=== PATIENT | female | born 1940 | race African-American/Black ===

== ENCOUNTER 2016-05-08 06:47 | Outpatient (CLI) | payer MEDICARE ==
[~2016-05-08] VITALS: Ht 167.6 cm; Wt 97.7 kg
--- NOTE | ~2016-05-08 | HEMODYNAMI ---
PATIENT:NIURKA SHARP MEDICAL RECORD: [id number] : 38 LOCATION:[facility] ADMISSION DATE: 05/08/16 Generatedon:05/08/201610:25 Patient name: NIURKA SHARP Patient #: [id number] SSN: DO B: 1940 Date of study: 05/08/2016 Page: Of Hemodynamic Procedure Report Patient Data Patient Demographics Procedure consent was obtained First Name: NIURKA Gender: Female Last Name: ARON : 1940 [facility] Initial: L Age: 76 year(s) Patient #: [id number] Race: Black Additional ID: [id number] Contact details Address: [address] [place] [address] State: [place] City: [facility] Zip code: [address] Past Medical History Performed procedures and imaging results Date Procedure Procedure Results Comments Stress testing with Positive->High SPECT MPI risk Allergies Allergen Reaction Date Comments Reported Sulfa drugs 05/08/2016 Admission Admission Data Admission Date: 05/08/2016 Admission Time: 6:47 Admit Source: Other Insurance Payor: Private health insurance Height (in.): 66 BSA: 2.06 (m2) Height (cm.): 167.64 BMI: 34.7 (kg/m2) Weight (lbs.): 215 Weight (kg.): 97.52 Medications upon Admission Medications Dosage Times Administered Last Remarks per Delivery Day Date and Time Aspirin Yes 05/07/2016 (any) 0:00 Clopidogrel Yes 05/08/2016 0:00 Lab Results Lab Result Date: 05/08/2016 Lab Result Time: 0:00 Biochemistry Name Units Result Min Max Creatinine mg/dl 0.7 --(*---)-- 0.6 1.3 CBC Name Units Result Min Max Hemoglobin g/dl 13 -*(----)-- 13.5 17.5 Procedure Procedure Types Cath Procedure Diagnostic Procedure LHC LH w/Coronaries PCI Procedure Coronary Stent Initial Miscellaneous Procedures Moderate Sedation up to 30 minutes Procedure Description Procedure Date Procedure Date: 05/08/2016 Procedure Start Time: 10:02 Procedure End Time: 10:17 Procedure Staff Name Function Ghada Abraham RT Monitor Bran Calle RN Nurse Mk Lima MD Performing Physician Idris Li RT Scrub Procedure Data Cath Procedure Fluoroscopy Diagnostic fluoroscopy Total fluoroscopy Time: 3.2 time: 3.2 min min Diagnostic fluoroscopy Total fluoroscopy dose: dose: 288.07 mGy 288.07 mGy Contrast Material Contrast Material Type Amount (ml) Isovue 300 96 Entry Location Entry Primary Successful Side Size Upsize Upsize Entry Closure [place] ccessful Closure Location (Fr) 1 (Fr) 2 (Fr) Remarks Device Remarks Femoral Right 5 Fr 6 Fr Mechanical artery Short Compression Estimated blood loss: 10 ml Diagnostic catheters Device Type Used For End Catheter Placement Cordis 5Fr Pigtail LV Angiography Catheter (MP) Cordis 5Fr JL 4.0 Left Coronary Catheter (MP) Angiography Cordis 5Fr 3DRC Catheter Right Coronary (MP) Angiography Procedure Complications No complications Procedure Medications Medication Administration Route Dosage Oxygen NC 2 l/min Heparin Flush Bag added to field 2 bags (1000units/500ml NS) 0.9% NaCl I.V. 100 ml/hr Plavix P.O. 600 mg Fentanyl I.V. 50 mcg Versed I.V. 1 mg Fentanyl I.V. 50 mcg Versed I.V. 1 mg Heparin Bolus I.V. 4000 units Integrilin (Bolus I.V. 9 ml 2mg/ml) Fentanyl I.V. 50 mcg Hemodynamics Rest BSA: 2.06 (m2) HGB: 13 (g/dl) O2 Consumption: Estimated: 185.38 (ml/min) O2 Cons umption indexed: Estimated:89.99 (ml/min/m) Heart Rate: 69 (bpm) Snapshots Pre Cath Intra NCS Post Cath Vital Signs Time Heart Resp SPO2 NIBP (mmHg) Rhythm Pain Sedation Rate (ipm) (%) Status Level (bpm) 9:38:33 68 16 98 153/63(121) NSR 0 (11) 10(A) , No pain 9:42:55 64 20 98 148/71(117) NSR 0 (11) 10(A) , No pain 9:47:13 65 19 99 147/67(117) NSR 0 (11) 10(A) , No pain 9:51:33 67 19 99 147/69(120) NSR 0 (11) 10(A) , No pain 9:55:57 67 20 99 158/70(114) NSR 0 (11) 9(A) , No pain 10:00:13 70 20 96 139/92(121) NSR 0 (11) 9(A) , No pain 10:04:34 62 20 94 148/75(120) NSR 0 (11) 9(A) , No pain 10:08:48 64 18 95 146/80(122) NSR 0 (11) 9(A) , No pain 10:13:08 82 18 96 163/80(125) NSR 0 (11) 9(A) , No pain 10:17:32 83 14 96 143/78(91) NSR 0 (11) 9(A) , No pain Medications Time Medication Route Dose Verified Delivered Reason Notes Effectiveness by by 9:38:03 Oxygen NC 2 Bran Bran Per physician l/min Luc Calle RN RN 9:38:26 Heparin Flush added 2 Bran Bran used for Bag to bags Luc Calle RN procedure (1000units/500ml field RN NS) 9:38:41 0.9% NaCl I.V. 100 Bran Bran Per physician ml/hr Luc Calle RN RN 9:38:53 Plavix P.O. 600 Bran Bran for mg Luc Calle RN antiplatelet RN therapy 9:53:54 Fentanyl I.V. 50 Bran Bran for sedation mcg Luc Calle RN RN 9:54:01 Versed I.V. 1 mg Bran Bran for sedation Luc Calle RN RN 10:02:51 Fentanyl I.V. 50 Bran Bran for sedation mcg Luc Calle RN RN 10:02:57 Versed I.V. 1 mg Bran Bran for sedation Luc Calle RN RN 10:08:40 Heparin Bolus I.V. 4000 Bran Bran for units Luc Calle RN anticoagulation RN 10:08:54 Integrilin I.V. 9 ml Bran Barillasy for wasted 1mL (Bolus 2mg/ml) Luc Calle RN antiplatelet integrilin RN therapy bolus 10:11:29 Fentanyl I.V. 50 Bran Bran for sedation mcg Calle Calle RN java web engineer Log Time Note 8:41:05 Diagnostic Cath Status : Elective 8:44:28 Lab Result : Hemoglobin 13 g/dl 8:44:28 Lab Result : Creatinine 0.7 mg/dl 8:44:45 Admit Source: Other 8:44:50 Insurance Payor : Private health insurance 8:45:01 Patient Height : 167.64 inches 8:45:18 Patient Weight : 97.52 lbs 8:47:31 Patient allergic to Sulfa drugs 9:06:47 Time tracking: Regular hours 9:06:49 Bran Calle RN sent for patient. Start room use. 9:06:53 Plan of Care:Hemodynamics will remain stable., Cardiac rhythm will remain stable., Comfort level will be maintained., Respiratory function will remain adequate., Patient/ family verbilizes understanding of procedure., Procedure tolerated without complication., Recovers from procedure without complications.. 9:25:30 Patient received from Pre/Post Procedure Room to [facility] 3 Alert and oriented. Tansferred to table in Supine position. 9:36:38 Correct patient and procedure confirmed by team. 9:36:38 Warm blankets applied, and david hugger turned on for patient comfort. 9:36:39 Signed procedure consent form obtained from patient. 9:36:40 ECG and BP/O2 sat monitors applied to patient. 9:36:41 Full Disclosure recording started 9:37:19 Vital chart was started 9:37:24 Rhythm: sinus rhythm 9:37:39 H&P Date Dictated: 04/18/2016 Within 30 days and on chart., H&P Addendum completed by physician on day of procedure. (MUST COMPLETE FOR ALL OUTPATIENTS). 9:37:40 Pre-op teaching completed and patient verbalized understanding. 9:37:40 Pre-procedure instructions explained to patient. 9:37:42 Family in waiting room. 9:37:44 Patient NPO since Midnight. 9:37:46 Is the patient allergic to Iodine/contrast media? No. 9:37:48 Is patient on blood thinner?Yes 9:37:50 ACC The patient was administered the following blood thiners within the last 24 hours: ACCAspirin, ACCPlavix 9:37:52 Patient diabetic? Yes. 9:38:03 Oxygen 2 l/min NC was given by Bran Calle RN; Per physician; 9:38:17 If diabetic: On Metformin? No 9:38:21 Previous problem with sedation/anesthesia? No ? 9:38:23 Snore? Yes 9:38:24 Sleep apnea? No 9:38:25 Opens mouth fully? Yes 9:38:25 Deviated septum? No 9:38:26 Sticks out tongue? Yes 9:38:26 Heparin Flush Bag (1000units/500ml NS) 2 bags added to field was given by Bran Calle RN; used for procedure; 9:38:28 Airway obstruction? No ? 9:38:31 Dentures? Yes In 9:38:37 Pre procedure: right dorsailis pedis pulse 2+ Normal; easily identifiable; not easily obliterated 9:38:40 Patient pain scale 0/10 ?. 9:38:41 0.9% NaCl 100 ml/hr I.V. was given by Bran Calle RN; Per physician; 9:38:45 IV patent on arrival in left hand with 0.9% NaCl at [facility]. 9:38:50 Lab results completed and on chart. 9:38:53 Plavix 600 mg P.O. was given by Bran Calle RN; for antiplatelet therapy; 9:38:54 Right groin area was prepped with chlora-prep and draped in sterile fashion 9:38:55 Alarms reviewed by R. N. 9:38:56 Sharps counted by scrub and verified by R.N. 9:40:23 Baseline sample Acquired. 9:40:28 Use device set Femoral Dx 9:40:29 Acist Syringe opened to sterile field. 9:40:30 Medline Cath Pack opened to sterile field. 9:40:30 Bag Decanter opened to sterile field. 9:40:31 St Bubba 260cm J .035 wire opened to sterile field. 9:40:31 Terumo 5Fr [place] Sheath opened to sterile field. 9:40:32 Acist Hand Control opened to sterile field. 9:40:33 Diagnostic Infinity 5Fr Multipack catheter opened to sterile field. 9:40:33 Acist Manifold opened to sterile field. 9:40:34 Tegaderm 4 x 4 opened to sterile field. 9:43:59 Zero performed for pressure channel P1 9:44:02 Zero performed for pressure channel P1 9:53:32 Final Timeout: patient, procedure, and site verified with staff and physician. All members of the team are in agreement. 9:53:34 Right groin site verified by team. 9:53:36 Physical assessment completed. ASA score P 2 - A patient with mild systemic disease as per Mk Lima MD. 9:53:39 Sedation plan: IV Moderate Sedation Versed, Fentanyl 9:53:54 Fentanyl 50 mcg I.V. was given by Bran Calle RN; for sedation; 9:54:01 Versed 1 mg I.V. was given by Bran Calle RN; for sedation; 10:02:06 Procedure started. 10:02:11 Local anesthetic to right femoral artery with Lidocaine 2% by Mk Lima MD.INITIAL ACCESS ONLY 10:02:51 Fentanyl 50 mcg I.V. was given by Bran Calle RN; for sedation; 10:02:55 A 5 Fr sheath was inserted into the Right Femoral artery 10:02:57 Versed 1 mg I.V. was given by Bran Calle RN; for sedation; 10:03:11 A Cordis 5Fr Pigtail Catheter (MP) was advanced over the wire and used for LV Angiography. 10:03:36 LV gram done using ACEVEDO 10:03:40 Injector settings: Ml/sec: 10, Volume: 20, 10:03:44 EF : 40 % 10:03:45 Catheter removed. 10:03:53 A Cordis 5Fr JL 4.0 Catheter (MP) was advanced over the wire and used for Left Coronary Angiography. 10:05:39 Terumo 6Fr [place] Sheath opened to sterile field. 10:05:40 Kaur Whisper J 300cm 0.014 guide wire opened to sterile field. 10:05:40 TVShow Time BasixCompak Inflation Kit opened to sterile field. 10:05:46 Catheter removed. 10:05:50 A Cordis 5Fr 3DRC Catheter (MP) was advanced over the wire and used for Right Coronary Angiography. 10:06:29 Catheter removed. 10:07:11 Cordis 6FR XBLAD 3.5 guide catheter opened to sterile field. 10:08:03 Sheath upsized to a 6 Fr Short. 10:08:17 6 Fr XBLAD 3.5 guide catheter was inserted over the wire 10:08:21 Whisper wire advanced. 10:08:40 Heparin Bolus 4000 units I.V. was given by Bran Calle RN; for anticoagulation; 10:08:54 Integrilin (Bolus 2mg/ml) 9 ml I.V. was given by Bran Calle RN; for antiplatelet therapy; wasted 1mL integrilin bolus 10:09:12 Inflation Number: 1 A Medtronic Resolute 2.5 X 30 stent was prepped and advanced across the Mid LAD. The stent was deployed at 19 PELON for 0:15 (min:sec). 10:10:00 Stent catheter was removed intact over wire. 10:11:29 Fentanyl 50 mcg I.V. was given by Bran Calle RN; for sedation; 10:11:55 Inflation Number: 1 A Medtronic Resolute 2.5 X 18 stent was prepped and advanced across the Dist LAD. The stent was deployed at 13 PELON for 0:11 (min:sec). 10:12:22 Guide catheter removed. 10:12:22 Wire removed. 10:12:22 Stent catheter was removed intact over wire. 10:12:30 Sheath removed intact; hemostasis achieved with Mechanical Compression to the Right Femoral artery. 10:12:37 Cordis 6Fr Exoseal opened to sterile field. 10:12:39 Procedure ended.(Physican Out) 10:13:33 Fluoroscopy time 03.20 minutes. 10:13:54 Fluoroscopy dose: 288.07 mGy 10:13:54 Flurop Dose total: 288.07 10:14:25 Contrast amount:Isovue 300 96ml. 10:14:37 Sharps counted by scrub and verified by R.N. 10:14:39 Insertion/operative site no bleeding no hematoma. 10:14:44 Post-op/insertion site Right Femoral artery dressed using a 4 x 4 and Tegaderm. 10:14:47 Post right femoral artery:stable, clean and dry 10:14:49 Post Procedure Pulses reassessed and unchanged 10:14:52 Post-procedure physical assessment completed. ASA score P 2 - A patient with mild systemic disease as per Mk Lima MD. 10:14:53 Post procedure rhythm: unchanged. 10:14:56 Estimated blood loss: 10 ml 10:14:58 Patient needs reinforcement of post procedure teaching. 10:14:58 Post procedure instruction explained to patient.Patient verbalizes understanding. 10:15:07 Post right femoral artery:oozing 10:15:21 Procedure type changed to Cath procedure, Diagnostic procedure, LHC, LHC w/Coronaries, PCI procedure, Coronary Stent Initial, Miscellaneous Procedures, Moderate Sedation up to 30 minutes 10:15:30 Procedure Complication : No complications 10:15:32 St Bubba Femstop Arch Gold opened to sterile field. 10:15:33 See physician's report for complete and final results. 10:15:47 Femstop placed over the right femoral artery at 120 mmHg. Hemostasis achieved. 10:17:16 Procedure and supply charges have been captured, reviewed, submitted and are correct. 10:17:34 Vital chart was stopped 10:17:35 Report given to Pre/Post Procedure Room. 10:17:38 Patient transfered to Pre/Post Procedure Room with Bed. 10:17:41 Full Disclosure recording stopped 10:17:41 Procedure ended. 10:17:45 End room use (Document Last) Intervention Summary Intervention Notes Time ActionType Lesion and Equipment Action# Pressure Duration Attributes Used 10:09:12 Place stent Mid LAD Medtronic 1 19 00:15 Resolute 2.5 X 30 stent 10:11:55 Place stent Dist LAD Medtronic 1 13 00:11 Resolute 2.5 X 18 stent Device Usage Item Name Manufacture Quantity Catalog Hospital Part Current Minimal Lot# / Number Charge Number Stock Stock Serial# Code Acist Acist 1 [id number] 322671 719301 [id number] 20 Syringe Medical Systems Inc Bag Microtek 1 2002S 472143 45621 830200 5 Bio[employer] Solutions Medical Inc. Medline Cardinal 1 [id number] 852263 29731 895932 5 Cath Pack Health Terumo 5Fr Terumo 1 [id number] 906567 603790 527373 [address] St Bubba 1 277538 142743 400157 980928 30 260cm J .035 wire Acist Hand Acist 1 40735 083294 706829 502006 5 Control Medical Systems Inc Acist Acist 1 86727 476344 823283 041127 5 Manifold Medical Systems Inc Diagnostic Cardinal 1 [id number] 129734 68913 822965 30 Simplilearn 5Fr Multipack catheter Tegaderm 4 3M 1 1626W 274215 653957 005955 5 x 4 Cordis 5Fr Cardinal 1 [id number] 5 Pigtail Health Catheter (MP) Cordis 5Fr Cardinal 1 [id number] 5 JL 4.0 Health Catheter (MP) Terumo 6Fr Terumo 1 [id number] 917530 979038 196098 40 [place] Sheath [facility] 1 [id number] 310837 213215 369926 15 BasixCompak Medical Inflation Kit Kaur Kaur 1 [id number] 759664 976551 228536 5 Whisper J Vascular 300cm 0.014 guide wire Cordis 5Fr Cardinal 1 410202 5 3DRC Health Catheter (MP) Cordis 6FR Cardinal 1 [id number] 458970 125661 295709 10 XBLAD 3.5 Health guide catheter Medtronic Medtronic 1 [id number] 692272 747507 9 [id number] Resolute 2.5 X 30 stent Medtronic Medtronic 1 [id number] 389762 821266 4 [id number] Resolute 2.5 X 18 stent Cordis 6Fr Cardinal 1 [id number] 958445 433265 794575 10 [id number] [facility] St Bubba 1 [id number] 886677 094227 016879 5 Femstop Arch Gold Signature Audit Elizabeth Stage Time Signature Unsigned Intra-Procedure 05/08/2016 Ghada Urrutia Counts 10:18:42 AM Counts RT(R) RT(R) 05/08/2016 10:23:05 AM Intra-Procedure 05/08/2016 Ghada 10:25:08 AM Counts RT(R) Signatures Monitor : Ghada Signature : Counts RT Date : Time : [place] [id number] [place] [address]
[~2016-05-08 06:47] MED LIST: BAYER CHEWABLE81 MG PO; CATAPRES0.1 MG; COREG6.25 MG PO; DIOVAN HCT 320/1 TA2 PO; ISORDIL5 MG; LANTUS SOL100 UNIT/1 SQ; NOVOLOG100 U/M1 SQ; PLAVIX75 MG PO
[2016-05-08 07:59] VITALS: BP 161/64; Ht 167.6 cm; Wt 97.7 kg
[2016-05-08 08:32] LABS: BASOPHILS 0.3 % (0.0-2.0); HEMATOCRIT 39.4 % (36.0-48.0); IMMATURE GRANULOCYTES 0.1 % (0-5); LYMPHOCYTES 43.4 % (15-50); MCH 29.7 pg (26.0-34.0); MEAN PLATELET VOLUME 10.5 fL (7.4-10.4); MONOCYTES 6.1 % (2-11); NEUTROPHILS 49.1 % (40-80); PLATELET COUNT 229 10x3/uL (130-400); RBC 4.38 10x6/uL (4.00-5.40); RDW 13.8 % (11.5-14.5); WBC 7.7 10x3/uL (4.8-10.8)
[2016-05-08 08:38] LABS: CALC OSMOLALITY 286 mosm/kg (275-300); CALCIUM 8.9 mg/dL (8.5-10.1); CARBON DIOXIDE 30.2 mmol/L (21.0-32.0); CHLORIDE - SERUM 106 mmol/L (98-107); CREATININE - SERUM 0.7 mg/dL (0.6-1.3); SODIUM 144 mmol/L (136-145); UREA NITROGEN 12 mg/dL (7-18); eGFR NON AFRICAN AMERICAN 86 mL/min (90-120)
[2016-05-08 08:41] LABS: GLUCOSE 104 mg/dL (74-106)
--- NOTE | 2016-05-08 10:45 | NUR ---
RESTING IN BED WITH FAMILY AT BEDSIDE. 2L NASAL CANNULA, NO RESP DISTRESS NOTED. NO C/O NAUSEA OR CHEST PAIN. RIGHT GROIN DRSG CDI, NO BLEEDING OR HEMATOMA NOTED. FEMSTOP IN PLACE AT 126. PULSES PALPABLE X4. WILL CONTINUE TO MONITOR.
--- NOTE | 2016-05-08 11:15 | NUR ---
ASSISTED PT ONTO BEDPAN, VOIDED 350CC OF CLEAR YELLOW URINE. WATER AND CRACKERS GIVEN. NO C/O N/V OR CHEST PAIN. VSS.
--- NOTE | 2016-05-08 11:30 | NUR ---
FEMSTOP PRESSURE DECREASED BY 30. NO BLEEDING OR HEMATOMA NOTED TO SITE.
--- NOTE | 2016-05-08 12:04 | NUR ---
FEMSTOP PRESSURE RELEASED BY 25. NO BLEEDING NOTED TO SITE.
--- NOTE | 2016-05-08 12:30 | NUR ---
FEMSTOP PRESSURE RELEASED BY 25. NO BLEEDING NOTED TO SITE.
--- NOTE | 2016-05-08 13:14 | NUR ---
FEMSTOP PRESSUER RELEASED BY 30. NO BLEEDING NOTED AT SITE. VSS. NO NEEDS VOICED AT THIS TIME.
--- NOTE | 2016-05-08 13:54 | NUR ---
REMAINING FEMSTOP PRESSURE REMOVED, NO BLEEDING NOTED. DRESSING PLACED TO SITE. HOB RAISED 30 DEGREES.
--- NOTE | 2016-05-08 14:01 | NUR ---
LEFT FA PIV D/C'D WITH CATHETER INTACT. BAND AID PLACED AT SITE.
--- NOTE | 2016-05-08 14:11 | NUR ---
DISCHARGE INSTRUCTIONS GIVEN, VERBALIZED UNDERSTANDING. UP TO BEDSIDE TO GET DRESSED.
--- NOTE | 2016-05-08 14:19 | NUR ---
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 LEFT FACILITY WITH FAMILY MEMBER AND ALL PERSONAL BELONGINGS.
--- NOTE | 2016-05-20 10:08 | OP ---
PATIENT NAME: NIURKA SHARP MEDICAL RECORD: [id number] :38 LOCATION:D.CAT ADMISSION DATE: SURGEON: SHERICE ROSA MD DATE OF OPERATION: 05/08/2016 PROCEDURES: 1. PTCA stent LAD. 2. Left heart catheterization. 3. Selective coronary angiography. 4. Left ventriculogram. INDICATION: Angina and coronary artery disease. PROCEDURE IN DETAIL: After informed consent was obtained and after a detailed explanation of risks, benefits as well as alternative therapies, the patient elected to proceed with angiogram and angioplasty. The right radial area is prepped and draped in normal sterile fashion. Right radial artery was cannulated via modified Seldinger technique with placement of 6-Arabic sheath. All catheters exchanged through this sheath. FINDINGS: The left ventriculogram was performed in the standard 30-degree ACEVEDO view reveals global hypokinesis throughout all segments. Overall ejection fraction mildly depressed. Ejection fraction is estimated at 40%. SELECTIVE CORONARY ANGIOGRAPHY: 1. Left main showed no significant angiographic disease. 2. Left anterior descending has previously placed stents, these are widely patent. However, there is a new 80+ percent stenosis distal to the previously placed stents. 3. The left circumflex shows moderate irregularities, but no flow-limiting stenosis. 4. Right coronary has moderate irregularities, but no flow-limiting stenosis. PTCA STENT OF THE LAD: The stents used were a 2.5 x 30 and 2.5 x 18 both Resolute stents. Result was 0% residual stenosis. OVERALL IMPRESSION: Successful percutaneous transluminal coronary angioplasty stent of the left anterior descending going from 80% initial stenosis to 0% residual. TRANSINT:[id number] Voice Confirmation ID: [id number] DOCUMENT ID: [id number] SHERICE ROSA MD at 1008 CC: [id number] DICTATION DATE: 05/08/16 1017 BLENDING TANK TENDER: 05/08/16 1452 [facility] CLI 05/08/[address] [address]
== END 2016-05-08 14:30 | disposition home or self-care (01) ==
LOC: D.CATH 06:47
PROVIDERS: Internal Medicine Interventional Cardiology
DX: I25.119 Atherosclerotic heart disease of native coronary artery with unspecified angina pectoris (principal); Z95.5 Presence of coronary angioplasty implant and graft
CPT/HCPCS: 93458; C9600

== ENCOUNTER 2017-07-11 08:02 | Outpatient (CLI) | payer MEDICARE ==
[~2017-07-11] VITALS: Ht 167.6 cm; Wt 97.7 kg
--- NOTE | ~2017-07-11 | HEMODYNAMI ---
PATIENT:NIURKA SHARP MEDICAL RECORD: [id number] : 38 LOCATION:D.CAT ADMISSION DATE: 07/11/17 Generatedon:07/11/201711:17 Patient name: NIURKA SHARP Patient #: [id number] SSN: DO B: 1940 Date of study: 07/11/2017 Page: Of Hemodynamic Procedure Report Patient Data Patient Demographics Procedure consent was obtained First Name: NIURKA Gender: Female Last Name: ARON : 1940 Middle Initial: L Age: 77 year(s) Patient #: [id number] Race: Black Additional ID: [id number] Contact details Address: [address] [place] [address] [place] [facility] [place] [place]: [address] Past Medical History Allergies Allergen Reaction Date Comments Reported Sulfa drugs 05/08/2016 Other allergy 07/11/2017 Sulfa Admission Admission Data Admission Date: 07/11/2017 Admission Time: 8:02 Height (in.): 66 BSA: 2.02 (m2) Height (cm.): 167.64 BMI: 33.09 (kg/m2) Weight (lbs.): 205 Weight (kg.): 92.99 Procedure Procedure Types Cath Procedure Diagnostic Procedure [facility] w/Coronaries PCI Procedure Coronary Stent Coronary Stent Initial Procedure Description Procedure Date Procedure Date: 07/11/2017 Procedure Start Time: 11:01 Procedure End Time: 11:13 Procedure Staff Name Function Mk Lima MD Performing Physician Leticia Montgomery RT Monitor Bran Calle RN Nurse Franny Love RT Scrub Procedure Data Cath Procedure Fluoroscopy Diagnostic fluoroscopy Total fluoroscopy Time: 2.3 time: 2.3 min min Diagnostic fluoroscopy Total fluoroscopy dose: 536 dose: 536 mGy mGy Contrast Material Contrast Material Type Amount (ml) Isovue 300 70 Entry Location Entry Primary Successful Side Size Upsize Upsize Entry Closure Succes sful Closure Location (Fr) 1 (Fr) 2 (Fr) Remarks Device Remarks Femoral Right 5 Fr 6 Fr Exoseal artery Short Estimated blood loss: 10 ml Diagnostic catheters Device Type Used For End Catheter Placement MULTIPACK Pigtail 5 Fr Procedure catheter MULTIPACK JL 4.0 5Fr Procedure catheter MULTIPACK 3DRC 5Fr Procedure catheter Procedure Complications No complications Procedure Medications Medication Administration Route Dosage Oxygen etCO2 Nasal cannula 2 l/min Heparin Flush Bag added to field 2 bags (1000units/500ml NS) 0.9% NaCl I.V. 100 ml/hr Fentanyl I.V. 50 mcg Versed I.V. 1 mg Fentanyl I.V. 50 mcg Versed I.V. 1 mg Heparin Bolus I.V. 4000 units Hemodynamics Rest BSA: 2.02 (m2) O2 Consumption: Estimated: 274.72 (ml/min) O2 Consumption indexed : Estimated:136 (ml/min/m) Snapshots Pre Cath Intra NCS Post Cath Vital Signs Time Heart Resp SPO2 etCO2 NIBP (mmHg) Rhythm Pain Sedation Rate (ipm) (%) (mmHg) Status Level (bpm) 10:46:06 64 17 97 0 142/61(123) NSR 0 (11) 10(A) , No pain 10:50:24 62 16 95 0 134/66(107) NSR 0 (11) 10(A) , No pain 10:54:38 70 16 98 41.3 137/70(96) NSR 0 (11) 10(A) , No pain 10:58:56 67 17 98 15.7 131/68(102) NSR 0 (11) 9(A) , No pain 11:02:56 67 16 84 34.5 115/82(111) NSR 0 (11) 9(A) , No pain 11:07:55 66 16 90 8.2 Measuring NSR 0 (11) 9(A) , No pain 11:08:09 66 16 89 24 139/68(121) NSR 0 (11) 9(A) , No pain 11:12:28 79 17 89 38.3 137/74(121) NSR 0 (11) 9(A) , No pain Medications Time Medication Route Dose Verified Delivered Reason Notes Effectiveness by by 10:51:09 Oxygen etCO2 2 Mk Sotomayor Per physician Nasal l/min Janie Calle RN cannula 10:51:18 Heparin Flush added 2 Mk Sotomayor used for Bag to bags Janie Calle RN procedure (1000units/500ml field NS) 10:51:25 0.9% NaCl I.V. 100 Mk Sotomayor Per physician ml/hr Janie Calle RN 10:56:11 Fentanyl I.V. 50 Mk Sotomayor for sedation mcg Janie Calle RN 10:56:17 Versed I.V. 1 mg Mk Sotomayor for sedation Janie Calle RN 10:59:36 Fentanyl I.V. 50 Mk Sotomayor for sedation mcg Janie Calle RN 10:59:42 Versed I.V. 1 mg Mk Sotomayor for sedation Janie Calle RN 11:06:24 Heparin Bolus I.V. 4000 Mk Sotomayor for units Janie Calle RN anticoagulation Procedure Log Time Note 10:30:34 Leticia Montgomery RT(R) sent for patient. Start room use. 10:39:57 Patient Height : 66 inches 10:40:02 Patient Weight : 205 lbs 10:40:32 Diagnostic Cath status Elective 10:40:35 Time tracking: Regular hours (M-F 7:00 - 5:00) 10:40:41 Plan of Care:Hemodynamics will remain stable., Cardiac rhythm will remain stable., Comfort level will be maintained., Respiratory function will remain adequate., Patient/ family verbilizes understanding of procedure., Procedure tolerated without complication., Recovers from procedure without complications.. 10:40:46 Patient received from Pre/Post Procedure Room to CCL 2 Alert and oriented. Tansferred to table in Supine position. 10:40:47 Warm blankets applied, and david hugger turned on for patient comfort. 10:40:48 Correct patient and procedure confirmed by team. 10:40:50 Signed procedure consent form obtained from patient. 10:40:51 ECG and BP/O2 sat monitors applied to patient. 10:41:28 H&P Date Dictated: 07/02/2017 Within 30 days and on chart., H&P Addendum completed by physician on day of procedure. (MUST COMPLETE FOR ALL OUTPATIENTS). 10:41:31 Family in waiting room. 10:41:32 Patient NPO since Midnight. 10:42:10 Patient allergic to Other allergySulfa 10:42:13 Is the patient allergic to Iodine/contrast media? No. 10:42:15 Was the patient premedicated? Yes 10:42:20 Is patient on blood thinner?Yes 10:42:23 ACC The patient was administered the following blood thiners within the last 24 hours: ACCPlavix 10:42:25 Patient diabetic? Yes. 10:42:27 If diabetic: On Metformin? No 10:42:32 Snore? Yes 10:42:35 Sleep apnea? Unknown 10:42:40 Dentures? No ? 10:42:52 IV patent on arrival in left forearm with 0.9% NaCl at [facility]. 10:45:00 Vital chart was started 10:45:04 Baseline sample Acquired. 10:51:09 Oxygen 2 l/min etCO2 Nasal cannula was administered by Bran Calle RN; Per physician; 10:51:18 Heparin Flush Bag (1000units/500ml NS) 2 bags added to field was administered by Bran Calle RN; used for procedure; 10:51:25 0.9% NaCl 100 ml/hr I.V. was administered by Bran Calle RN; Per physician; 10:52:57 Lab results completed and on chart. 10:53:01 Right groin area was prepped with chlora-prep and draped in sterile fashion 10:53:07 Alarms reviewed by R. N. 10:53:08 Sharps counted by scrub and verified by R.N. 10:53:10 Physician paged 10:56:03 Physician arrived 10:56:03 --------ALL STOP TIME OUT------ 10:56:04 Final Timeout: patient, procedure, and site verified with staff and physician. All members of the team are in agreement. 10:56:10 Right groin site verified by team. 10:56:11 Fentanyl 50 mcg I.V. was administered by Bran Calle RN; for sedation; 10:56:14 Physical assessment completed. ASA score P 2 - A patient with mild systemic disease as per Mk Lima MD. 10:56:17 Versed 1 mg I.V. was administered by Bran Calle RN; for sedation; 10:56:20 Sedation plan: IV Moderate Sedation Medication:Versed, Fentanyl 10:59:36 Fentanyl 50 mcg I.V. was administered by Bran Calle RN; for sedation; 10:59:42 Versed 1 mg I.V. was administered by Bran Calle RN; for sedation; 11:01:01 Use device set Femoral Dx 11:01:04 Procedure started. 11:01:04 Full Disclosure recording started 11:01:25 Local anesthetic to right femoral artery with Lidocaine 2% by Mk Lima MD.INITIAL ACCESS ONLY 11:01:33 A 5 Fr sheath was inserted into the Right Femoral artery 11:01:39 ACIST Syringe (77615) opened to sterile field. 11:01:39 Bag Decanter (2002) opened to sterile field. 11:01:41 Medline Cath Pack ([id number]) opened to sterile field. 11:01:41 DIAGNOSTIC WIRE .035 260cm J wire (804344) opened to sterile field. 11:01:43 ACIST Hand Control (52771) opened to sterile field. 11:01:43 ACIST Manifold (97192) opened to sterile field. 11:01:46 DIAGNOSTIC Multipack 5Fr catheter set (TQ6057) opened to sterile field. 11:01:46 Tegaderm 4 x 4 (1626W) opened to sterile field. 11:01:48 PERCUTANEOUS ENTRY 19GA needle opened to sterile field. 11:01:51 SHEATH Prelude 5Fr 0.035 (AEO-4L-96-035) opened to sterile field. 11:02:22 A MULTIPACK Pigtail 5 Fr catheter was advanced over the wire and used for Procedure. 11:02:30 LV angiography performed. 11:02:37 EF : 40 % 11:02:38 Catheter removed. 11:02:45 A MULTIPACK JL 4.0 5Fr catheter was advanced over the wire and used for Procedure. 11:03:05 LCA angiography performed. 11:03:59 INFLATOR Merit BasixCompak (WM3626) opened to sterile field. 11:04:00 CHOICE PT Extra Support 182cm wire ([id number]) opened to sterile field. 11:04:01 SHEATH 6FR [place] (POJ030) opened to sterile field. 11:04:05 Catheter removed. 11:04:13 A MULTIPACK 3DRC 5Fr catheter was advanced over the wire and used for Procedure. 11:04:34 RCA angiography performed. 11:06:24 Heparin Bolus 4000 units I.V. was administered by Bran Calle RN; for anticoagulation; 11:06:30 Catheter removed. 11:06:36 Proceeding to intervention. 11:06:48 Sheath upsized to a 6 Fr Short. 11:06:52 GUIDE 6FR XBLAD 3.5 catheter ([id number]) opened to sterile field. 11:07:08 6 Fr XBLAD3.5 guide catheter was inserted over the wire 11:07:24 choice pt ex wire advanced. 11:07:26 Wire advanced across lesion. 11:07:27 IVUS catheter advanced over wire. 11:07:29 [place] Belkofski Eag[place] IVUS Catheter (96243Z) opened to sterile field. 11:09:38 IVUS catheter removed over wire. 11:10:11 Place stent Inflation Number: 1 A MARIA T RX 3.5 x 12 stent ([id number]) was prepped and advanced across the Mid LAD. The stent was deployed at 21 PELON for 0:10 (min:sec). 11:10:22 EXOSEAL 6Fr (EX600) opened to sterile field. 11:11:25 Wire removed. 11:11:25 Guide catheter removed. 11:11:55 Sheath removed intact; hemostasis achieved with Exoseal to the Right Femoral artery. 11:11:57 Procedure ended.(Physican Out) 11:12:06 Fluoroscopy time 02.30 minutes. 11:12:10 Fluoroscopy dose: 536 mGy 11:12:10 Flurop Dose total: 536 11:12:14 Contrast amount:Isovue 300 70ml. 11:12:15 Sharps counted by scrub and verified by R.N. 11:12:19 Insertion/operative site no bleeding no hematoma. 11:12:22 Post right femoral artery:stable 11:12:25 Post Procedure Pulses reassessed and unchanged 11:12:28 Post-procedure physical assessment completed. ASA score P 2 - A patient with mild systemic disease as per Mk Lima MD. 11:12:37 Estimated blood loss: 10 ml 11:12:40 Post procedure instruction explained to patient.Patient verbalizes understanding. 11:12:41 Patient needs reinforcement of post procedure teaching. 11:12:53 Procedure type changed to Cath procedure, Diagnostic procedure, LHC, LHC w/Coronaries, PCI procedure, Coronary Stent, Coronary Stent Initial 11:12:55 Procedure and supply charges have been captured, reviewed, submitted and are correct. 11:13:16 Procedure Complication : No complications 11:13:19 Vital chart was stopped 11:13:19 See physician's report for complete and final results. 11:13:22 Procedure ended. 11:13:22 Full Disclosure recording stopped 11:13:26 End room use (Document Last) Intervention Summary Intervention Notes Time ActionType Lesion and Equipment Used Action# Pressure Duration Attributes 11:10:11 Place stent Mid LAD MARIA T RX 3.5 x 1 21 00:10 12 stent ([id number]) Device Usage Item Name Manufacture Quantity Catalog Number Hospital Part Current Minimal Lot# / Charge Number Stock Stock Serial# Code ACIST Syringe Acist 1 01531 147035 825412 750874 20 (31546) Medical Systems Inc Bag Decanter Microtek 1 2001S 455057 25737 843951 5 () Medical Inc. Medline Cath Cardinal 1 [id number] 332854 40033 980235 5 [employer] Health ([id number]) DIAGNOSTIC WIRE [facility] [place]ub[place] 1 [id number] 197438 503445 485302 30 .035 260cm J wire (833646) ACIST Hand Acist 1 22036 468872 758083 935474 5 Control (01925) Medical Systems Inc ACIST Manifold Acist 1 60167 874424 229054 752399 5 (16640) [employer] Systems Inc DIAGNOSTIC Cardinal 1 [id number] 381218 77377 187664 30 Multipack 5Fr Health catheter set ([id number]) Tegaderm 4 x 4 3M 1 1626W 248769 725867 408196 5 (1626W) PERCUTANEOUS Cook Medical 1 I00231 465634 880241 5 ENTRY 19GA needle SHEATH Prelude Merit 1 VHR-6H-78-035 926237 694037 402807 5 5Fr 0.035 Medical (RAC-2H-00-035) MULTIPACK Cardinal 1 659418 5 Pigtail 5 Fr Health catheter MULTIPACK JL Cardinal 1 697609 5 4.0 5Fr Health catheter INFLATOR Merit Merit 1 JV6395 984263 675528 277779 15 KPA ([id number]) CHOICE PT Extra [place] 1 [id number] 186299 585647 004859 5 Support 182cm Scientific wire ([id number]) SHEATH 6FR Terumo 1 UGT709 918699 307604 796797 40 [place] (SHL705) MULTIPACK 3DRC Cardinal 1 784023 5 5Fr catheter Health GUIDE 6FR XBLAD Cardinal 1 [id number] 672375 823074 901320 10 3.5 catheter Health ([id number]) [place] 1 06874J 650095 776433 491655 8 Belkofski Eag[place]e IVUS Catheter (22792Q) MARIA T RX 3.5 x Medtronic 1 [id number] 558908 6841380 809699 5 [id number] 12 stent ([id number]) EXOSEAL 6Fr Cardinal 1 EX600 301610 761281 526314 10 (EX600) Health Signature Audit [place] Stage Time Signature Unsigned Intra-Procedure 07/11/2017 Leticia Montgomery 11:17:39 AM RT(R) Signatures Monitor : Leticia Montgomery Signature : RT Date : Time : [place] [id number] [facility] [place] [address]
--- NOTE | ~2017-07-11 | OP ---
PATIENT NAME: INURKA SHARP MEDICAL RECORD: [id number] :38 LOCATION:D.CAT ADMISSION DATE: SURGEON: SHERICE ROSA MD DATE OF OPERATION: 07/11/2017 PROCEDURES: 1. PTCA stent LAD. 2. Intravascular ultrasound. 3. Left heart catheterization. 4. Selective coronary angiography. 5. Left ventriculogram. INDICATION: Angina and coronary artery disease. PROCEDURE IN DETAIL: After informed consent was obtained and after a detailed description of risks, benefits as well as alternative therapies, the patient elected to proceed with angiogram and angioplasty. The right femoral area was prepped and draped in normal sterile fashion. The right femoral artery was cannulated via modified Seldinger technique with placement of 6-[place] sheath. All catheters exchanged through this sheath. FINDINGS: Left ventriculogram was performed in standard 30-degree ACEVEDO view, reveals mild global hypokinesis, ejection fraction 40%. SELECTIVE CORONARY ANGIOGRAPHY: 1. Left main is with no significant angiographic disease. 2. Left anterior descending has previously placed stents. There is 80% stenosis just after the proximal stent confirmed by intravascular ultrasound. 3. The left circumflex has mild irregularities, but no flow-limiting stenosis. 4. The right coronary has moderate irregularities, but no flow-limiting stenosis. PTCA STENT OF THE LAD: The stent used was a 3.5 x 12 mm [place] taken to 23 atmospheres. Result was 0% residual stenosis. OVERALL IMPRESSION: Successful percutaneous transluminal coronary angioplasty stent of the left anterior descending going from 80% initial stenosis to 0% residual stenosis. TRANSINT:[id number] Voice Confirmation ID: [id number] DOCUMENT ID: [id number] SHERICE ROSA MD at 1730 CC: [id number] DICTATION DATE: 07/11/17 1116 SERVICE ENGINEER: 07/11/17 1322 DEP CLI 07/11/17 [place] [id number] [place] [id number]
[2017-07-11 08:49] LABS: BASOPHILS 0.2 % (0-2); HEMOGLOBIN 12.8 g/dL (12-16); LYMPHOCYTES 45.2 % (15-50); MCH 29.6 pg (26.0-34.0); MCHC 32.8 g/dL (31.0-37.0); MCV 90.1 fL (80.0-100.0); MEAN PLATELET VOLUME 10.3 fL (7.4-10.4); MONOCYTES 4.3 % (2-11); NEUTROPHILS 48.3 % (40-80); PLATELET COUNT 211 10x3/uL (130-400); RBC 4.33 10x6/uL (4.00-5.40); WBC 8.6 10x3/uL (4.8-10.8)
[2017-07-11 08:50] VITALS: BP 131/71; Ht 167.6 cm; Wt 97.7 kg
[2017-07-11 08:58] LABS: ANION GAP 12.8 mmol/L (8-16); CALCIUM 8.7 mg/dL (8.5-10.1); CARBON DIOXIDE 26.9 mmol/L (21.0-32.0); CREATININE - SERUM 0.8 mg/dL (0.6-1.3); POTASSIUM - SERUM 3.7 mmol/L (3.5-5.1)
== END 2017-07-11 15:20 | disposition home or self-care (01) ==
LOC: D.CATH 08:02
PROVIDERS: Internal Medicine Interventional Cardiology
DX: I25.119 Atherosclerotic heart disease of native coronary artery with unspecified angina pectoris (principal); Z95.5 Presence of coronary angioplasty implant and graft; Z01.812 Encounter for preprocedural laboratory examination
CPT/HCPCS: 93458; 92978; C9600